=== PATIENT | male | born 1945 | race Caucasian/White ===

== ENCOUNTER 2018-11-15 18:27 | Emergency (ER) | payer MEDICARE, OTHER ==
[~2018-11-15] VITALS: Ht 177.8 cm; Wt 64.9 kg
--- NOTE | 2018-11-15 19:01 | ED GI ---
General Chief Complaint: Abdominal/GI Problems Stated Complaint: VOMITING; DIARRHEA; HEADACHE Source of Information: Patient, Spouse Exam Limitations: No Limitations History of Present Illness Date Seen by Provider: Nov 15, 2018 Time Seen by Provider: 18:54 Initial Comments Patient complains of nausea vomiting and explosive watery diarrhea since morning. no vomiting today but diarrhea continues. He has been incontinent of stool a few times. He has taken Imodium at maximum dose for the past 3 days without much relief. His had no fevers or chills. He has a history of dementia as well as provides most of the history. Allergies and Home Medications Allergies Coded Allergies: No Known Drug Allergies (Unverified , 11/15/18) Review of Systems Review of Systems Constitutional: malaise, weakness EENTM: No Symptoms Reported Respiratory: No Symptoms Reported Cardiovascular: No Symptoms Reported Gastrointestinal: Denies Abdominal Pain; Diarrhea, Nausea, Vomiting Musculoskeletal: no symptoms reported Skin: no symptoms reported Psychiatric/Neurological: Headache All Other Systems Reviewed Negative Unless Noted: Yes Past Bulksaj-Lkntyd-Exxqqx Hx Patient Social History Recent Foreign Travel: No Contact w/Someone Who Travel: No Physical Exam Vital Signs Vital Signs - First Documented 11/15/18 19:12 Temp 99.6 Pulse 69 Resp 22 B/P (MAP) 106/65 (79) Pulse Ox 94 O2 Delivery Room Air Capillary Refill : Height/Weight/BMI Height: '" Weight: lbs. oz. kg; BMI Method: General Appearance: WD/WN, no apparent distress HEENT: PERRL/EOMI, pharynx normal Neck: non-tender, full range of motion, supple Respiratory: lungs clear, normal breath sounds Cardiovascular: regular rate, rhythm, no edema Gastrointestinal: normal bowel sounds, non tender, soft; No guarding, No rebound Extremities: normal range of motion, non-tender, normal inspection, no pedal edema Neurologic/Psychiatric: alert, normal mood/affect Skin: normal color, warm/dry Focused Exam Lactate Level 11/15/18 19:05: Lactic Acid Level 0.75 Lactic Acid Level Laboratory Tests Test 11/15/18 19:05 Lactic Acid Level 0.75 MMOL/L (0.50-2.00) Progress/Results/Core Measures Results/Orders Lab Results Laboratory Tests Test 11/15/18 19:05 Range/Units White Blood Count 4.7 4.3-11.0 10^3/uL Red Blood Count 4.13 L 4.35-5.85 10^6/uL Hemoglobin 12.4 L 13.3-17.7 G/DL Hematocrit 38 L 40-54 % Mean Corpuscular Volume 91 80-99 FL Mean Corpuscular Hemoglobin 30 25-34 PG Mean Corpuscular Hemoglobin Concent 33 32-36 G/DL Red Cell Distribution Width 12.7 10.0-14.5 % Platelet Count 275 130-400 10^3/uL Mean Platelet Volume 8.7 7.4-10.4 FL Neutrophils (%) (Auto) 64 42-75 % Lymphocytes (%) (Auto) 22 12-44 % Monocytes (%) (Auto) 10 0-12 % Eosinophils (%) (Auto) 3 0-10 % Basophils (%) (Auto) 1 0-10 % Neutrophils # (Auto) 3.0 1.8-7.8 X 10^3 Lymphocytes # (Auto) 1.1 1.0-4.0 X 10^3 Monocytes # (Auto) 0.5 0.0-1.0 X 10^3 Eosinophils # (Auto) 0.1 0.0-0.3 10^3/uL Basophils # (Auto) 0.1 0.0-0.1 10^3/uL Sodium Level 144 135-145 MMOL/L Potassium Level 4.3 3.6-5.0 MMOL/L Chloride Level 107 98-107 MMOL/L Carbon Dioxide Level 22 21-32 MMOL/L Anion Gap 15 H 5-14 MMOL/L Blood Urea Nitrogen 28 H 7-18 MG/DL Creatinine 1.32 H 0.60-1.30 MG/DL Estimat Glomerular Filtration Rate 53 BUN/Creatinine Ratio 21 Glucose Level 112 H 70-105 MG/DL Lactic Acid Level 0.75 0.50-2.00 MMOL/L Calcium Level 9.3 8.5-10.1 MG/DL Corrected Calcium 9.5 8.5-10.1 MG/DL Total Bilirubin 1.2 H 0.1-1.0 MG/DL Aspartate Amino Transf (AST/SGOT) 29 5-34 U/L Alanine Aminotransferase (ALT/SGPT) 23 0-55 U/L Alkaline Phosphatase 67 40-136 U/L Total Protein 6.3 L 6.4-8.2 GM/DL Albumin 3.7 3.2-4.5 GM/DL Lipase 15 8-78 U/L My Orders Orders - RENUKA MORENO MD Comprehensive Metabolic Panel (11/15/18 18:49) Lipase (11/15/18 18:49) Ua Culture If Indicated (11/15/18 18:49) Cbc With Automated Diff (11/15/18 18:49) Lactic Acid Analyzer (11/15/18 18:49) Ns Iv 1000 Ml (Sodium Chloride 0.9%) (11/15/18 20:15) Acetaminophen Tablet (Tylenol Tablet) (11/15/18 20:15) Diphenoxylate/Atropine Tablet (Lomotil T (11/15/18 20:15) Ns Iv 1000 Ml (Sodium Chloride 0.9%) (11/15/18 19:58) Vital Signs/I&O 11/15/18 19:12 Temp 99.6 Pulse 69 Resp 22 B/P (MAP) 106/65 (79) Pulse Ox 94 O2 Delivery Room Air Departure Impression Primary Impression: Gastroenteritis Additional Impression: Headache Disposition: HOME, SELF-CARE Condition: Stable Departure-Patient Inst. Decision time for Depature: 20:05 Referrals: TRACY JHA MD (PCP) Primary Care Physician Patient Instructions: Diarrhea in Adolescents and Adults Add. Discharge Instructions: Clear liquid diet until diarrhea improves. See your doctor Saturday if not improving. Lomotil as directed for diarrhea. All discharge instructions reviewed with patient and/or family. Voiced understanding. Scripts Diphenoxylate HCl/Atropine (Lomotil 2.5-0.025 mg Tablet) 1 Each Tablet 1 EACH PO TID PRN for DIARRHEA, #10 TAB 0 Refills Prov: RENUKA MORENO MD 11/15/18 RENUKA MORENO MD Nov 15, 2018 19:01
[2018-11-15 19:39] LABS: HEMATOCRIT 38 % (40-54); HEMOGLOBIN 12.4 G/DL (13.3-17.7); LYMPHOCYTES % (AUTO) 22 % (12-44); MEAN CORPUSCULAR HEMOGLOBIN 30 PG (25-34); MEAN CORPUSCULAR HGB CONC 33 G/DL (32-36); MEAN CORPUSCULAR VOLUME 91 FL (80-99); MEAN PLATELET VOLUME 8.7 FL (7.4-10.4); MONOCYTES % (AUTO) 10 % (0-12); NEUTROPHILS % (AUTO) 64 % (42-75); PLATELET COUNT 275 10^3/uL (130-400); RED CELL DISTRIBUTION WIDTH 12.7 % (10.0-14.5); WHITE BLOOD COUNT 4.7 10^3/uL (4.3-11.0)
[2018-11-15 19:40] LABS: BASOPHILS # (AUTO) 0.1 10^3/uL (0.0-0.1); BASOPHILS % (AUTO) 1 % (0-10); EOSINOPHILS # (AUTO) 0.1 10^3/uL (0.0-0.3); EOSINOPHILS % (AUTO) 3 % (0-10); LYMPHOCYTES # (AUTO) 1.1 X 10^3 (1.0-4.0); MONOCYTES # (AUTO) 0.5 X 10^3 (0.0-1.0)
[2018-11-15 19:56] LABS: POTASSIUM 4.3 MMOL/L (3.6-5.0)
[2018-11-15 19:57] LABS: ALBUMIN 3.7 GM/DL (3.2-4.5); BILIRUBIN,TOTAL 1.2 MG/DL (0.1-1.0); CALCIUM 9.3 MG/DL (8.5-10.1); CREATININE SERUM 1.32 MG/DL (0.60-1.30); TOTAL PROTEIN 6.3 GM/DL (6.4-8.2)
[2018-11-15] MEDS ORDERED: NS IV 1000 ML 1,000 ML ONE (19:58)
--- NOTE | 2018-11-15 20:00 | NUR ---
Pt is unable to urinate, because urinated right when he got here he stated.
[2018-11-15] MEDS ORDERED: DIPH1TAB PO (20:08)
[2018-11-15] MEDS ORDERED: ACETAMINOPHEN 500 MG TAB (TYLENOL) PO ONE (20:15)
[2018-11-15] MEDS ORDERED: DIPHENOXYLATE/ATROPINE 2.5MG/0.025MG (LOMOTIL) TAB PO PRN (20:15)
[2018-11-15] MEDS ORDERED: NS IV 1000 ML 1,000 ML IV SCH (20:15)
[2018-11-15 20:30] VITALS: BP 107/75
== END 2018-11-15 20:43 | disposition home or self-care (01) ==
LOC: ER FS 18:30
DX: K52.9 Noninfective gastroenteritis and colitis, unspecified (principal); R51 Headache; F03.90 Unspecified dementia, unspecified severity, without behavioral disturbance, psychotic disturbance, mood disturbance, and anxiety
CPT/HCPCS: 36415; 80053; 83605; 83690; 85025

== ENCOUNTER → 2018-12-30 | Outpatient (CLI) | payer MEDICARE, OTHER ==
[~2018-12-30] MED LIST: DIPH1TAB PO
[2018-12-30 11:58] LABS: BASOPHILS # (AUTO) 0.1 10^3/uL (0.0-0.1); BASOPHILS % (AUTO) 2 % (0-10); EOSINOPHILS # (AUTO) 0.2 10^3/uL (0.0-0.3); EOSINOPHILS % (AUTO) 4 % (0-10); HEMATOCRIT 38 % (40-54); HEMOGLOBIN 12.6 G/DL (13.3-17.7); LYMPHOCYTES % (AUTO) 21 % (12-44); MEAN CORPUSCULAR HEMOGLOBIN 30 PG (25-34); MEAN CORPUSCULAR HGB CONC 33 G/DL (32-36); MEAN CORPUSCULAR VOLUME 92 FL (80-99); MEAN PLATELET VOLUME 8.3 FL (7.4-10.4); MONOCYTES # (AUTO) 0.4 X 10^3 (0.0-1.0); MONOCYTES % (AUTO) 9 % (0-12); NEUTROPHILS # (AUTO) 3.1 X 10^3 (1.8-7.8); NEUTROPHILS % (AUTO) 66 % (42-75); PLATELET COUNT 243 10^3/uL (130-400); RED CELL DISTRIBUTION WIDTH 12.8 % (10.0-14.5); WHITE BLOOD COUNT 4.8 10^3/uL (4.3-11.0)
[2018-12-30 12:30] LABS: ALANINE AMINOTRANSFERASE 19 U/L (0-55); ALBUMIN 3.8 GM/DL (3.2-4.5); ALKALINE PHOSPHATASE 69 U/L (40-136); BILIRUBIN,TOTAL 0.9 MG/DL (0.1-1.0); BUN/CREATININE RATIO 23; CALCIUM 9.3 MG/DL (8.5-10.1); CARBON DIOXIDE 27 MMOL/L (21-32); CHLORIDE 108 MMOL/L (98-107); CREATININE SERUM 0.98 MG/DL (0.60-1.30); GFR ESTIMATED > 60; GLUCOSE 84 MG/DL (70-105); POTASSIUM 4.6 MMOL/L (3.6-5.0); SODIUM 140 MMOL/L (135-145); TOTAL PROTEIN 6.1 GM/DL (6.4-8.2)
[2018-12-30 12:31] LABS: EOSINOPHILS % (MANUAL) 4 %; LYMPHOCYTES % (MANUAL) 18 %; MONOCYTES % (MANUAL) 9 %; NEUTROPHILS % (MANUAL) 69 %; RBC MORPH NORMAL
--- NOTE | 2018-12-31 07:20 | Diagnostic Imaging Report ---
EXAMINATION: PET/CT INDICATION: Anterior mediastinal mass TECHNIQUE: PET/CT imaging was obtained from the base of the skull through the pelvis after the administration of 11.78 mCi of F-[address] imaging was utilized for localization and attenuation correction purposes. The low energy CT utilized for attenuation correction is not considered to be of high enough spatial resolution to allow in and of itself a separate anatomical analysis. There are no previous PET/CT exams or cross-sectional imaging studies available for comparison. The CT images do show a 2.2 x 3.6 CM fairly well-circumscribed soft tissue mass in the anterior mediastinum. This mass appears to be arising from the inferior pole of the left lobe of the thyroid. There is no hypermetabolic activity associated with this mass and I suspect that this finding is secondary to a substernal goiter. If further imaging is desired, then ultrasound would be recommended. There is no other hypermetabolic activity evident to suggest the presence of neoplasm. There is physiologic activity in the brain the kidneys and the bladder. There is some slight increased activity within the scrotum near midline. This has a maximum SUV of 2.2 and may well represent one of the testicles. The CT images do suggest that there are bilateral hydroceles. If further evaluation of the scrotum is desired, then ultrasound would be recommended. The CT images fail to show any sign of an acute abnormality. There is a lobulated 2.8 CM area of low density within the left lobe liver. Most likely this is a cyst. There is also a 5 CM rounded area of low density along the inferior pole of the right kidney. This too is most likely secondary to a cyst. If further evaluation of these findings is desired, then ultrasound would be recommended. The bone windows do show degenerative disc and bony disease throughout the lumbar spine. 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 If further imaging is desired, then MRI would be recommended. IMPRESSION: 1. The substernal mass in the anterior mediastinum is not hypermetabolic. Most likely this represents a substernal goiter. Recommendations as above. 2. There is no other hypermetabolic activity to suggest the presence of neoplasm. 3. There do appear to be mild hydroceles within the scrotum as well as cysts in the liver and right kidney. If further evaluation of this finding is desired, then ultrasound would be recommended. 4. 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 MRI should be considered for further evaluation. Dictated by: Dictated on workstation # [id number]
== END ==
LOC: RAD 11:41
PROVIDERS: ATTEND Internal Medicine Hematology & Oncology
DX: J98.59 Other diseases of mediastinum, not elsewhere classified (principal); N28.1 Cyst of kidney, acquired; K76.89 Other specified diseases of liver; M48.061 Spinal stenosis, lumbar region without neurogenic claudication
CPT/HCPCS: 36415; 80053; 83615; 85007; 85027

== ENCOUNTER 2019-01-08 19:43 | Emergency (ER) | payer MEDICARE, OTHER ==
[~2019-01-08] VITALS: Ht 172.7 cm; Wt 65.8 kg
--- OUTSIDE RECORDS SUMMARY | 2019-01-08 19:48 | XMS REPORT | Continuity of Care Document ---
Author Organization Unknown Address Unknown Allergies Active Description Code Type Severity Reaction Onset Reported/Identified Relationship to Patient Clinical Status Yes NO KNOWN DRUG ALLERGIES UNKNOWN NO KNOWN DRUG ALLERG Medications Medication Packaging Start Date Stop Date Route Dosage Sig GI COCKTAIL SINGLE DOSE LIQ (GRASSHOPPER) ML 12/26/2018 12/26/2018 [id number]&[id number] Problems Date Dx Coded Attending Type Code Diagnosis Diagnosed By 02/24/2018 ELINA CARVER 715.16 OSTEOARTHROSIS, LOCALIZED, PRIMARY, INVOLVING LOWER LEG 02/24/2018 ELINA CARVER M17.11 UNILATERAL PRIMARY OSTEOARTHRITIS, RIGHT KNEE 02/26/2018 ELINA CARVER 715.16 OSTEOARTHROSIS, LOCALIZED, PRIMARY, INVOLVING LOWER LEG 02/26/2018 ELINA CARVER M17.11 UNILATERAL PRIMARY OSTEOARTHRITIS, RIGHT KNEE 12/26/2018 Jeffrey Bejarano 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 Results There is no data. Encounters ACCT No. Visit Date/Time Discharge Status Pt. Type Provider Facility Loc./Unit Complaint [id number] 01/02/2019 10:07:00 01/02/2019 23:59:00 DIS Outpatient [facility], [place] V [id number] 12/26/2018 12:30:00 12/26/2018 13:51:00 DIS Outpatient Jeffrey Bejarano [facility] [id number] 02/14/2018 12:31:00 02/26/2018 14:35:00 DIS Outpatient ELINA CARVER [id number] 02/06/2018 16:02:00 02/06/2018 23:59:00 DIS Outpatient ELINA CARVER [id number] 12/26/2018 12:47:13 Document Registration
--- NOTE | 2019-01-08 20:11 | ED Upper Extremity ---
General Chief Complaint: Upper Extremity Stated Complaint: R SHOULDER PAIN Nursing Triage Note: RIGHT SHOULDER PAIN. PATIENT REPORTED HE HAD BEEN WORKING ON A TRACTOR AND THE PAIN STARTED AROUND 1800 TONIGHT. Nursing Sepsis Screen: No Definite Risk Source: patient, family History of Present Illness Date Seen by Provider: Jan 08, 2019 Time Seen by Provider: 20:11 Initial Comments 73-year-old male presenting with his spouse to the emergency department. He had been working with some department equipment around 6 PM tonight when he started having pain in his right shoulder. He had come in and told his that he was having pain. He denied having any direct trauma to the shoulder and does not remember anything he did to specifically injure the shoulder. There is no obvious bruising or deformity to his shoulder. He has pain with any attempted movement of the right shoulder and arm. He does not have any numbness or tingling to the right arm. He has no obvious weakness of the right side. He does have some chronic neck pain but has never had this pain into his shoulder before. He does have some tightness and spasming of the trapezius muscle on the right side and that is where he is having pain. He has no had pain like this before Allergies and Home Medications Allergies Coded Allergies: No Known Drug Allergies (Unverified , 11/15/18) Home Medications Diphenoxylate HCl/Atropine 1 Each Tablet, 1 EACH PO TID PRN for DIARRHEA Prescribed by: RENUKA MORENO on 11/15/182007 Patient Home Medication List Home Medication List Reviewed: Yes Review of Systems Constitutional: no symptoms reported EENTM: no symptoms reported Respiratory: no symptoms reported Cardiovascular: no symptoms reported Gastrointestinal: no symptoms reported Musculoskeletal: see HPI Skin: see HPI Psychiatric/Neurological: Pre-Existing Deficit (chronic dementia) Past Zmyclyr-Oaoktz-Eieaug Hx Past Med/Social Hx: Reviewed Nursing Past Med/Soc Hx Patient Social History 2nd Hand Smoke Exposure: No Recent Foreign Travel: No Contact w/Someone Who Travel: No Recent Infectious Disease Expo: No Recent Hopitalizations: No Physical Abuse: No Sexual Abuse: No Mistreated: No Fear: No Seasonal Allergies Seasonal Allergies: No Past Medical History Surgeries: No Respiratory: No Cardiac: No Neurological: No Genitourinary: No Gastrointestinal: No Musculoskeletal: Yes Arthritis Endocrine: No HEENT: No Cancer: No Psychosocial: No Integumentary: No Blood Disorders: No Physical Exam Vital Signs Vital Signs - First Documented 01/08/19 19:48 Temp 98.3 Pulse 79 Resp 18 B/P (MAP) 108/56 (73) Pulse Ox 97 O2 Delivery Room Air Capillary Refill : Less Than 3 Seconds Height, Weight, BMI Height: 5'8.00" Weight: 145lbs. 0oz. 65.728879ix; BMI Method:Stated General Appearance: WD/WN, no apparent distress HEENT: PERRL/EOMI, pharynx normal Neck: tender lateral (worse on the right side and along the trapezius muscle) Cardiovascular: normal peripheral pulses, regular rate, rhythm Respiratory: chest non-tender, lungs clear, normal breath sounds Shoulder: no evidence of injury; No deformity, No ecchymosis; limited ROM (due to pain), pain (along right trapezius distribution); No swelling Elbow/Forearm: normal inspection, non-tender, no evidence of injury, normal ROM Wrist: Yes normal inspection, Yes non-tender, Yes no evidence of injury Hand: normal inspection, non-tender, no evidence of injury Neurologic/Tendon: normal sensation, normal motor functions, normal tendon functions Neurologic/Psychiatric: alert Skin: normal color, warm/dry Progress/Results/Core Measures Results/Orders My Orders Orders - MARTA PEACOCK MD Shoulder 2 View Right (01/08/19 19:55) Orthopedic Equiment (01/08/19 20:33) Ketorolac Injection (Toradol Injection) (01/08/19 20:45) Rx-Cyclobenzaprine Tablet (Rx-Flexeril T (01/08/19 20:45) Medications Given in ED Current Medications Medications Dose Ordered Sig/Bradley Route Start Time Stop Time Status Last Admin Dose Admin Ketorolac Tromethamine 30 mg ONCE ONCE IM 01/08/19 20:45 01/08/19 20:46 DC 01/08/19 20:39 30 MG Vital Signs/I&O 01/08/19 01/08/19 19:48 20:47 Temp 98.3 98.3 Pulse 79 79 Resp 18 18 B/P (MAP) 108/56 (73) 108/56 (73) Pulse Ox 97 97 O2 Delivery Room Air Room Air Blood Pressure Mean: 73 Progress Progress Note : Progress Note xrays of the right shoulder 2 view films on my review of the films show arthritis but no acute bony abnormality to account for his pain and limited range of motion. will treat symptomatically and have him try a sling for a few days and low dose cyclobenzaprine along with tylenol. toradol shot here tonight. check with clinic if not better by Saturday or Saturday. Diagnostic Imaging Diagonstic Imaging: Xray Plain Films/CT/US/NM/MRI: other (shoulder) Comments NAME: ELINA STEELE [facility] REC#: [id number] PT STATUS: DEP ER : 1945 PHYSICIAN: MARTA PEACOCK MD ADMIT DATE: 01/08/19/ER FS Draft Date of Exam:01/08/19 SHOULDER 2 VIEW RIGHT EXAMINATION: Right shoulder, 2 views. INDICATION: Right shoulder pain. COMPARISON: None. FINDINGS: No fracture or acute osseous abnormality. Bony alignment is maintained. The acromioclavicular joint is intact. Amorphous calcification inferior to the glenoid may reflect calcific tendinopathy. Regional soft tissues are unremarkable. IMPRESSION: No acute fracture or dislocation. Dictated on workstation # [id number] Dict: 01/08/192152 Trans: 01/08/192158 [facility] [id number] Interpreted by: LEA RENEE DO Electronically signed by: Reviewed: Reviewed by Me Departure Impression Primary Impression: Strain of right trapezius muscle Qualified Codes: S46.811A - Strain of other muscles, fascia and tendons at shoulder and upper arm level, right arm, initial encounter Additional Impressions: Right shoulder strain Qualified Codes: S46.911A - Strain of unspecified muscle, fascia and tendon at shoulder and upper arm level, right arm, initial encounter Right shoulder pain Qualified Codes: M25.511 - Pain in right shoulder Disposition: 01 HOME, SELF-CARE Condition: Stable Departure-Patient Inst. Decision time for Depature: 20:36 Referrals: TRACY DUTTA MD (PCP/Family) Primary Care Physician Patient Instructions: How to Use a Shoulder Sling, Muscle Strain, Shoulder Pain (DC), Muscle Spasms (DC) Add. Discharge Instructions: Try the sling for the next few days to help the shoulder rest and heal. Alternate ice and heat to the painful areas to help with the pain, spasms and inflammation. You may try the Cyclobenzaprine muscle relaxer at bedtime to help him rest and treat spasms of the muscles. Try 5 mg or 1/2 a pill at bedtime and see if that helps. If he has more problems or is not tolerating that dose you could try cutting it in half again to 2.5 mg at bedtime. Call in the morning to get an appointment for Saturday or Saturday for follow up with Dr. Dutta. If it is doing better you could always cancel the appointment or have him check it out and see how he is doing. If it is worsening or not improving then Dr. Dutta can evaluate it and see what to do next to help the shoulder injury and pain. You could also try some topical ointments to see if that helps the muscles relax and not hurt so much. All discharge instructions reviewed with patient and/or family. Voiced understanding. MARTA PEACOCK MD Jan 08, 2019 20:11
[2019-01-08] MEDS ORDERED: RX-CYCLOBENZAPRINE 10 MG (FLEXERIL) TAB PPK#3 PO PRN (20:45)
[2019-01-08] MEDS ORDERED: KETOROLAC 30 MG/ML VIAL IM ONE (20:45)
[2019-01-08 20:47] VITALS: BP 108/56
--- NOTE | 2019-01-08 21:59 | Diagnostic Imaging Report ---
EXAMINATION: Right shoulder, 2 views. INDICATION: Right shoulder pain. COMPARISON: None. FINDINGS: No fracture or acute osseous abnormality. Bony alignment is maintained. The acromioclavicular joint is intact. Amorphous calcification inferior to the glenoid may reflect calcific tendinopathy. Regional soft tissues are unremarkable. IMPRESSION: No acute fracture or dislocation. Dictated by: Dictated on workstation # [id number]
== END 2019-01-08 20:45 | disposition home or self-care (01) ==
LOC: EDUNIT# 19:43 → ER FS 19:44
DX: S46.811A Strain of other muscles, fascia and tendons at shoulder and upper arm level, right arm, initial encounter (principal); S46.911A Strain of unspecified muscle, fascia and tendon at shoulder and upper arm level, right arm, initial encounter; X50.0XXA Overexertion from strenuous movement or load, initial encounter
CPT/HCPCS: 73030

== ENCOUNTER → 2019-01-20 | Outpatient (CLI) | payer MEDICARE, OTHER ==
[~2019-01-20] MED LIST changes: +GADOBUTROL 7.5 MMOL/7.5 ML (GADAVIST) VIAL IV ONE
--- NOTE | 2019-01-20 11:57 | Diagnostic Imaging Report ---
PROCEDURE: MRI upper extremity any joint with and without contrast right. TECHNIQUE: Multiplanar, multisequence pre- and [id number] MRI of the right shoulder was accomplished. INDICATION: Right shoulder pain. Lytic lesion in the proximal right humerus. Decreased range of motion. No known injury. COMPARISON: Radiographs from 01/08/2019. FINDINGS: There is mild bone marrow edema and subcortical cyst-like changes from degenerative change in the right humeral head. No acute fracture is seen in the right shoulder. There are advanced degenerative changes in the right acromioclavicular joint. There is a moderate right shoulder joint effusion. There is fluid in the subacromial-subdeltoid bursa. The superior aspect of the lytic lesion seen on the prior radiograph would be expected to be included on this [id number], at least on the coronal and sagittal sequences; however, no bone marrow lesions or abnormal enhancement is seen in the proximal humerus. There is a full-thickness tear of the supraspinatus tendon measuring up to 1.9 cm in size, which also appears to involve the anterior-most fibers of the distal infraspinatus tendon. There is marked tendinosis of the supraspinatus tendon. The infraspinatus tendon demonstrates tendinosis with low-grade partial-thickness tearing at the undersurface and intrasubstance extension medially. There is low-grade partial-thickness tearing of the distal subscapularis tendon as well. The teres minor tendon is intact. No significant muscular atrophy is seen. There is retraction of the supraspinatus tendon of approximately 1.5 cm. The long head of the biceps tendon is not well seen at the intra-articular portion, and there is tendinosis with suspected partial tearing of the intra-articular long head of the biceps tendon. The glenoid labrum is suboptimally evaluated in the absence of intra-articular contrast. There is suspected tearing of the inferior labrum. No significant paralabral cyst is seen. The labrum demonstrates a slightly curved undersurface. The coracoclavicular ligament is intact. The coracoacromial ligament is not well seen and could be torn. The inferior glenohumeral ligament is intact. IMPRESSION: 1. Moderate-sized full-thickness tear of the supraspinatus tendon. Tendinosis and low-grade partial tearing of the infraspinatus and subscapularis tendons. No muscular atrophy seen. 2. Tendinosis and suspected partial tearing of the intra-articular long head of the biceps tendon. 3. Moderate right shoulder joint effusion. 4. No lesion is seen in the proximal humerus to correlate with the prior radiograph. No abnormal bone marrow enhancement is seen. The superior aspect of the lesion would be expected to be in the [id number]. Dictated on workstation # [id number]
== END ==
LOC: RAD 08:24
PROVIDERS: ATTEND Orthopaedic Surgery
DX: M75.101 Unspecified rotator cuff tear or rupture of right shoulder, not specified as traumatic (principal)
CPT/HCPCS: 73223